=== PATIENT | female | born 1975 | race Caucasian/White ===

== ENCOUNTER 2017-08-09 16:56 | Emergency (ER) | payer MEDICAID ==
[~2017-08-09] VITALS: Ht 160 cm; Wt 99.8 kg
[2017-08-09] MEDS ORDERED: FLOVENT 11110 MCG/PU IH (17:03)
--- NOTE | 2017-08-09 17:13 | Emergency Room Report ---
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 N Clinical Suspician of Infection? N Mental Status: 1 - Regular (Normal Baseline) Sepsis Risk:Low Sepsis Risk Have you (or family members/close friends) recently traveled outside the [place]? N If Yes, where/when: Have you had exposure to infectious disease within the past month? N TB? Other? Specify: 42 years old white female with history of asthma she is a smoker, has been experiencing nonproductive cough for 1 month until yesterday when she started having chest tightness. She denies having fever chills nausea vomiting or palpitation. Source patient, RN notes reviewed Exam Limitations no limitations ALLERGIES Coded Allergies: No Known Allergies (08/09/17) Home Medications Reported Medications FLUTICASONE PROP (Flovent 110) 1 PUFF IH BID #12 History Medical History General CAD? No Angina: No NV: No Hypertension? No Hyperlipidemia? No CHF? No DVT? No PE? No COPD? No Asthma? No Anemia? No GERD? No Gastric ulcers? No Hernia? 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 Respiratory see HPI, cough Cardiovascular no symptoms reported Gastrointestinal no symptoms reported Genitourinary no symptoms reported. Musculoskeletal no symptoms reported Skin no symptoms reported Psychiatric/Neurological no symptoms reported Physical Exam Vital Signs Vital Signs Date Time Temp Pulse Resp B/P Pulse O2 O2 Flow FiO2 Ox Delivery Rate 08/09 1914 108 18 120/95 96 08/09 1844 97 14 130/87 96 08/09 1658 97.8 86 18 135/84 98 - WBC >12,000 or <4,000 or 10% bands? 2 or more SIRS Criteria Met? B/P:135/84 MAP:101 Creatinine >2.0? UA output<0.5ml/kg/hr for 2 hrs? Platelet count >100,000? Lactate >2.0mmol/1? INR >1.2 or PTT > than 60 sec? Evidence of Organ Dysfunction? Provider documented clinical suspician of infection? N Sepsis Criteria Count: 0N Sepsis Risk: Low Sepsis Risk General Appearance normal appearance, WD/WN Eye Exam - bilateral eye normal exam, bilateral eye PERRL, bilateral eye EOMI Ear, Nose, Throat hearing grossly normal, normal ENT inspection Neck normal inspection, non-tender, supple, full range of motion Respiratory Status Yes: trachea midline, chest symmetrical, non tender chest. No: respiratory distress. Lung Sounds bilateral: normal breath sounds, lungs clear. Cardiovascular normal exam, regular rate/rhythm, no peripheral edema, no gallop, no JVD, no murmur, no rub, normal peripheral pulses Peripheral Pulses Pulses normal Yes Gastrointestinal normal bowel sounds, normal exam, non tender, soft, no organomegaly Back normal inspection, no CVA tenderness, no vertebral tenderness Extremities non-tender, normal range of motion, normal inspection Neurologic alert, acid pumper II-XII nml as tested, normal exam, oriented x 3 Reflexes Reflexes normal Yes Mental status normal mood/affect Skin intact, normal color, warm/dry Lymphatic no adenopathy Medical Decision Making LABS/Meds/Orders Pt receiving controlled substance in ED? No Results/Orders Laboratory Tests 08/09/17 1745: Sodium 140, Potassium 4.2, Chloride 105, Carbon Dioxide 29, BUN 11, Creatinine 0.7, Estimated Creat Clear 163, Estimated GFR (MDRD) 91, Glucose 93, Calcium 9.3 , Total Bilirubin 0.3, AST 13 L, ALT 16, Alkaline Phosphatase 79, Creatine Kinase 170, CK-MB (CK-2) Rel Index 1.2, CK and CKMB Interp 2.0, Troponin I 0.02, B-Natriuretic Peptide 12, Total Protein 6.9, Albumin 3.8, Globulin 3.1, Albumin/ Globulin Ratio 1.2, D-Dimer < 100, WBC 8.2, RBC 4.58, Hgb 14.1, Hct 43.5, MCV 94.9, RDW 13.3, Plt Count 304, MPV 7.4, Gran % 56.1, Gran # 4.6, Lymphocytes % 35.0, Monocytes % 5.0, Eosinophils % 3.3, Basophils % 0.5, Lymphocytes # 2.9, Monocytes # 0.4, Eosinophils # 0.3, Basophils # 0.0, PUBS MCHC 32.4, MCH 30.8 Current Medication Orders Sig/Melodie Start time Last Medication Dose Route Stop Time Status Admin Levofloxacin 500 MG ONCE ONE 08/09 1915 DC 08/09 PO 08/09 1916 1914 Levofloxacin 0 .STK-MED ONE 08/09 191 DC .ROUTE Albuterol/Ipratropium 0 .STK-MED ONE 08/09 1801 DC INH Albuterol/Ipratropium 3 ML ONCE ONE 08/09 1800 DC INH 08/09 1801 Levofloxacin/Dextrose 150 ML ONCE ONE 08/09 1800 CANr IV 08/09 1929 Famotidine 0 .STK-MED ONE 08/09 1731 DC IV Aspirin 0 .STK-MED ONE 08/09 1730 DC .ROUTE Methylprednisolone 0 .STK-MED ONE 08/09 1730 DC Sodium Succinate .ROUTE Albuterol/Ipratropium 0 .STK-MED ONE 08/09 1720 DC INH Albuterol/Ipratropium 3 ML ONCE ONE 08/09 1715 DC INH 08/09 1716 Aspirin 325 MG ONCE ONE 08/09 1715 DC 08/09 PO 08/09 1716 1745 Famotidine 20 MG ONCE ONE 08/09 1715 DC 08/09 IV 08/09 1716 1743 Methylprednisolone 125 MG ONCE ONE 08/09 1715 DC 08/09 Sodium Succinate IV 08/09 1716 1744 Sodium Chloride 8 ML ONCE ONE 08/09 1715 DC 08/09 IV 08/09 1716 1746 Orders Procedure Date/time Status RT REQUEST DUONEB 08/09 1757 Active CULTURE, BLOOD 08/09 1757 Active LACTIC ACID 08/09 175 Active ELECTROCARDIOGRAM REQUEST 08/09 1715 Active RT REQUEST DUONEB 08/09 1714 Active D-DIMER 08/09 171 Complete CBC WITH AUTO DIFF 08/09 1714 Complete CARDIAC ENZYMES 08/09 1714 Complete CHEM 12 PROFILE 08/09 171 Complete BRAIN NATRIURETIC PEPTIDE 08/09 1714 Complete CHEST(2 VIEWS-NOT PORTABLE) 08/09 1705 Active 12 LEAD EKG-TAMY (INITIAL) 08/08 UNK Active CM/EKG CM/EKG EKG rate, NSR, rhythm, no evid. of ischemic chgs, no ectopy, normal QRS, normal FL, normal EKG Comments Normal sinus rhythm 81 per minute. Voltage baseline artifact no acute findings XRAY/CT/US XRAY/CT/US XRAY chest XR interpretation by reviewed by me Comment RLL INFILTRATES Departure Departure Time of Disposition 1911 Disposition DC Home or Self Care(routine) Clinical Impression Primary Impression: Bronchopneumonia Secondary Impressions: Reactive airway disease, Tobacco use Condition STABLE Referrals ISAIAH YARBROUGH,NADIA (Family) Additional Instructions tHE PATIENT FELT 90% BETTER AFTER STEROIDS AND NEB TREATMENT, SHE RULED OUT FOR AN NV AND Pe, SHE WANTED OFF WORK EXCUSED AND DECLINED ADMISSION, SHE UNDERSTANDS THAT SHE NEEDS TO STOP SMOKING. 1- OFF WORK X 2 DAYS. 2- STOP SMOKING. 3- LEVAQUIN 500 MG 4- TESSALON PEALRS. 6- COMBIVENT INHALER. 7-SEE Nadia Merchant FOR FINAL X RAY REPORT, SMOKING CESSATION AND RECHECK. 8- RETURN NEEDED. Discharge Counseling Counseled pt/family regarding diagnosis, test results, medications/RX, home care, follow up needs Prescriptions Current Visit Scripts Levofloxacin (Levaquin 500MG) 500 MG PO DAILY #10 TAB Benzonatate (Tessalon Perle) 100 MG PO Q4HP PRN COUGH #30 SGL ALBUTEROL-IPRATROPIUM (Combivent Inhaler) 1 PUFFS IN Q12 #1 INH Ref 1 Methylprednisolone (Medrol Dose Doug) 4 MG PO UD #1 DOUG TAKE DIRECTED ON PACKAGING ED Critical Care Critical Care No If Critical Care minutes are documented, the time involved in the performance of seperately reportable procedures was not counted toward critical care time documented. I directly delivered medical care to this critically ill and/or injured patient. Timely evaluation and treatment was necessary to address the significant organ system(s) dysfunction present in this patient. at 1917
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
--- OUTSIDE RECORDS SUMMARY | 2017-08-09 17:16 | External Medical Summary Rpt | CCD ---
Author Author , JC GREENE Address Unknown Phone [email or web address] Care Team Providers Care Sports Team Marketing Intern Name Role Phone [facility], Unavailable Unavailable [facility] RINA MICHELLE, RINA Unavailable Unavailable [facility] DE[facility] [...] HEALTH T [facility] UNCOMPLICAT IN ED [id number] PAIN IN 06-22-2017 [facility] A33424 PAIN IN 06-22-2017 [facility] LEFT [facility] [...] & LUMP CONSULTING LOWER LIMB SRV BILATERAL T13596 UNSPECIFIED 01-28-2017 [facility] UNCOMPLICAT HOLDINGS ED R609 EDEMA 01-28-2017 [facility] UNSPECIFIED [facility] F70639 ENCOUNTER 01-28-2017 [facility] SCREENING HOLD[facility] FOR LIPOID DISORDERS [...] 17 17 37 FA A 0 29 [place] [address] G UG IN [place] LE R VE 00 09 10 18 20 00 SO Ac NT 17 -2 -2 .0 00 PE ti OL 30 8- 7- 00 00 RS ve IN 68 20 20 57 22 17 17 37 FA HF 0 28 [place] A LY 90 DR MC UG G IN [place] LE R NA 68 09 10 60 30 00 SO Ac IA 46 -2 -2 .0 00 PE ti OX 20 8- 7- 00 00 RS ve EN 19 20 20 57 00 17 17 37 FA 50 5 27 [place] [address] TA UG BL ET TI 57 09 10 15 15 00 SO Ac ZA 66 -2 -2 .0 00 PE ti NI 40 8- 7- 00 00 RS ve DI 50 20 20 57 NE 31 17 17 37 FA 8 26 TN HC LY L 4 DR MG UG TA BL ET VE 00 09 10 18 20 00 SO Ac NT 17 -1 -0 .0 00 PE ti OL 30 3- 6- 00 00 RS ve IN 68 20 20 55 22 17 17 70 FA HF 0 64 [place] A LY 90 DR MC UG G IN [place] LE R GA 69 08 09 90 30 00 SO Ac BA 09 -1 -0 .0 00 PE ti PE 70 0- 8- 00 00 RS ve NT 81 20 20 55 IN 21 17 17 70 FA 2 49 [place] [address] UG TA BL ET VE 00 07 08 18 20 00 SO Ac NT 17 -1 -1 .0 00 PE ti OL 30 3- 1- 00 00 RS ve IN 68 20 20 55 22 17 17 70 FA HF 0 64 [place] A LY 90 DR MC UG G IN [place] LE R GA 69 06 07 90 30 00 SO Ac BA 09 -2 -1 .0 00 PE ti PE 70 0- 4- 00 00 RS ve NT 81 20 20 55 IN 21 17 17 70 FA 2 49 [place] [address] UG TA BL ET ME 53 06 07 30 30 00 SO Ac TF 74 -2 -1 .0 00 PE ti OR 60 0- 4- 00 00 RS ve TN 17 20 20 56 N 80 17 17 33 FA HC 5 40 TN L LY ER DR 50 UG 0 MG TA BL ET NI 00 05 06 28 28 00 SO Ac CO 53 -0 -0 .0 00 PE ti TI 65 4- 2- 00 00 RS ve NE 89 20 20 56 68 17 17 29 FA 21 8 77 TN LY MG /2 DR 4H UG R PA TC H ME 53 05 06 30 30 00 SO Ac TF 74 -0 -0 .0 00 PE ti OR 60 9- 2- 00 00 RS ve TN 17 20 20 56 N 80 17 17 33 FA HC 5 40 [place] L LY ER DR 50 UG 0 MG TA BL ET GA 68 05 06 90 30 00 SO Ac BA 46 -0 -0 .0 00 PE ti PE 20 9- 2- 00 00 RS ve NT 12 20 20 55 IN 60 17 17 70 FA 5 49 [place] [address] UG TA BL ET LO 45 05 06 30 30 00 SO Ac RA 80 -0 -0 .0 00 PE ti TA 20 9- 2- 00 00 RS ve DI 65 20 20 55 NE 08 17 17 70 FA 7 50 [place] [address] UG TA BL ET VE 00 04 05 18 20 00 SO Ac NT 17 -1 -1 .0 00 PE ti OL 30 9- 2- 00 00 RS ve IN 68 20 20 55 22 17 17 70 FA HF 0 64 [place] A LY 90 DR MC UG G IN [place] LE R FL 00 04 05 12 30 00 SO Ac OV 17 -1 -1 .0 00 PE ti EN 30 9- 2- 00 00 RS ve T 72 20 20 55 HF 02 17 17 70 FA A 0 63 TN [address] G UG IN [place] LE R GA 68 04 05 90 30 00 SO Ac BA 46 -0 -0 .0 00 PE ti PE 20 6- 5- 00 00 RS ve NT 12 20 20 55 IN 60 17 17 70 FA 5 49 [place] [address] UG TA BL ET GA 68 02 03 90 30 00 SO Ac BA 46 -2 -2 .0 00 PE ti PE 20 8- 4- 00 00 RS ve NT 12 20 20 55 IN 60 17 17 70 FA 5 49 [place] [address] UG TA BL ET LO 45 02 03 30 30 00 SO Ac RA 80 -2 -1 .0 00 PE ti TA 20 2- 7- 00 00 RS ve DI 65 20 20 55 NE 08 17 17 70 FA 7 50 [place] [address] UG TA BL [...] -V 34 U 7 LA RG E IA 59 01 02 15 7 00 RI [...] End Date Code Location Performer Type Date [facility] [address] T
--- OUTSIDE RECORDS SUMMARY | 2017-08-09 17:17 | External Medical Summary Rpt | CCD ---
Author Author , JC GREENE Address Unknown Phone [email or web address] Care Team Providers Care Cooper Apprentice Name Role Phone [facility], Unavailable Unavailable [facility] RINA MICHELLE, RINA Unavailable Unavailable [facility] DEPT [...] 2016 Problems Code Diagnosis DOS Provider Status J4520 MILD 06-22-2017 [facility]ITT[facility] T [facility] UNCOMPLICAT IN ED L78999 PAIN IN 06-22-2017 [facility] IN N07884 PAIN IN 06-22-2017 [facility] IN R072 PRECORDIAL 06-22-2017 [facility] IN Z1231 ENCOUNTER 06-22-2017 [facility] SCREENING HEALTH MAMMO MALIG [facility]UT[facility] NEOPLASM IN BREAST I517 CARDIOMEGAL 02-17-2017 [facility] IN G4710 HYPERSOMNIA 02-11-2017 NOEMI SÁNCHEZ UNSPECIFIED CONSULTING SRV I10 ESSENTIAL 02-10-2017 NOEMI SÁNCHEZ PRIMARY HYPERTENSIO CONSULTING N SRV R0602 SHORTNESS 02-10-2017 NOEMI SÁNCHEZ OF BREATH MD CONSULTING SRV R2243 LOC 02-10-2017 NOEMI SÁNCHEZ SWELLING MASS & LUMP CONSULTING LOWER LIMB SRV BILATERAL P44467 UNSPECIFIED 01-28-2017 [facility] UNCOMPLICAT HOLDINGS ED R609 EDEMA 01-28-2017 [facility] UNSPECIFIED [facility] G66054 ENCOUNTER 01-28-2017 [facility] SCREENING [...] PUBLIC HLTH AL TRAUMA PRS [facility] Medications Na ND Rx Da Fi Fi Am Da Di Ph RX Ph St me C No te ll ll ou ys ag ar # ys at rm s nt no ma ic us Or Da si cy ia de te s n re d TI 57 09 10 15 15 00 SO Ac ZA 66 -2 -2 .0 00 PE ti NI 40 8- 7- 00 00 RS ve DI 50 20 20 57 NE 31 17 17 37 FA 8 26 CO HC LY L 4 DR MG UG TA BL ET NA 68 09 10 60 30 00 SO Ac KS 46 -2 -2 .0 00 PE ti OX 20 8- 7- 00 00 RS ve EN 19 20 20 57 00 17 17 37 FA 50 5 27 CO [address] TA UG BL ET VE 00 09 10 18 20 00 SO Ac NT 17 -2 -2 .0 00 PE ti OL 30 8- 7- 00 00 RS ve IN 68 20 20 57 22 17 17 37 FA HF 0 28 CO A LY 90 DR MC UG G IN [place] LE R FL 00 09 10 12 30 00 SO Ac OV 17 -2 -2 .0 00 PE ti EN 30 8- 7- 00 00 RS ve T 71 20 20 57 HF 92 17 17 37 FA A 0 29 CO [address] G UG IN [place] LE R VE 00 09 10 18 20 00 SO Ac NT 17 -1 -0 .0 00 PE ti OL 30 3- 6- 00 00 RS ve IN 68 20 20 55 22 17 17 70 FA HF 0 64 CO A LY 90 DR MC UG G IN [place] LE R GA 69 08 09 90 30 00 SO Ac BA 09 -1 -0 .0 00 PE ti PE 70 0- 8- 00 00 RS ve NT 81 20 20 55 IN 21 17 17 70 FA 2 49 CO [address] UG TA BL ET VE 00 07 08 18 20 00 SO Ac NT 17 -1 -1 .0 00 PE ti OL 30 3- 1- 00 00 RS ve IN 68 20 20 55 22 17 17 70 FA HF 0 64 CO A LY 90 DR MC UG G IN [place] LE R GA 69 06 07 90 30 00 SO Ac BA 09 -2 -1 .0 00 PE ti PE 70 0- 4- 00 00 RS ve NT 81 20 20 55 IN 21 17 17 70 FA 2 49 CO [address] UG TA BL ET ME 53 06 07 30 30 00 SO Ac TF 74 -2 -1 .0 00 PE ti OR 60 0- 4- 00 00 RS ve CO 17 20 20 56 N 80 17 17 33 FA HC 5 40 CO L LY ER DR 50 UG 0 MG TA BL ET NI 00 05 06 28 28 00 SO Ac CO 53 -0 -0 .0 00 PE ti TI 65 4- 2- 00 00 RS ve NE 89 20 20 56 68 17 17 29 FA 21 8 77 CO LY MG /2 DR 4H UG R PA TC H ME 53 05 06 30 30 00 SO Ac TF 74 -0 -0 .0 00 PE ti OR 60 9- 2- 00 00 RS ve CO 17 20 20 56 N 80 17 17 33 FA HC 5 40 CO L LY ER DR 50 UG 0 MG TA BL ET GA 68 05 06 90 30 00 SO Ac BA 46 -0 -0 .0 00 PE ti PE 20 9- 2- 00 00 RS ve NT 12 20 20 55 IN 60 17 17 70 FA 5 49 CO [address] UG TA BL ET LO 45 05 06 30 30 00 SO Ac RA 80 -0 -0 .0 00 PE ti TA 20 9- 2- 00 00 RS ve DI 65 20 20 55 NE 08 17 17 70 FA 7 50 CO [address] UG TA BL ET VE 00 04 05 18 20 00 SO Ac NT 17 -1 -1 .0 00 PE ti OL 30 9- 2- 00 00 RS ve IN 68 20 20 55 22 17 17 70 FA HF 0 64 CO A LY 90 DR MC UG G IN [place] LE R FL 00 04 05 12 30 00 SO Ac OV 17 -1 -1 .0 00 PE ti EN 30 9- 2- 00 00 RS ve T 72 20 20 55 HF 02 17 17 70 FA A 0 63 CO [address] G UG IN [place] LE R GA 68 04 05 90 30 00 SO Ac BA 46 -0 -0 .0 00 PE ti PE 20 6- 5- 00 00 RS ve NT 12 20 20 55 IN 60 17 17 70 FA 5 49 CO [address] UG TA BL ET GA 68 02 03 90 30 00 SO Ac BA 46 -2 -2 .0 00 PE ti PE 20 8- 4- 00 00 RS ve NT 12 20 20 55 IN 60 17 17 70 FA 5 49 CO [address] UG TA BL ET LO 45 02 03 30 30 00 SO Ac RA 80 -2 -1 .0 00 PE ti TA 20 2- 7- 00 00 RS ve DI 65 20 20 55 NE 08 17 17 70 FA 7 50 CO [address] UG TA BL [...] -V 34 U 7 LA RG E KS 59 01 02 15 7 00 RI [...] End Date Code Location Performer Type Date [facility] [address] T
--- OUTSIDE RECORDS SUMMARY | 2017-08-09 17:17 | External Medical Summary Rpt | CCD ---
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 Name Role Phone [facility], Unavailable Unavailable [facility] RINA MICHELLE, RINA Unavailable Unavailable [...] HEALTH T ASTHMA SOLUTIONS UNCOMPLICAT IN ED [id number] PAIN IN 06-22-2017 [facility] IN [id number] PAIN IN 06-22-2017 [facility] LEFT [facility] [...] & [facility] CONSULTING LOWER LIMB SRV BILATERAL [id number] UNSPECIFIED 01-28-2017 [facility] ASTHMA [facility] UNCOMPLICAT HOLDINGS ED R609 EDEMA 01-28-2017 [facility] UNSPECIFIED [facility] HOLDINGS [id number] ENCOUNTER 01-28-2017 [facility] FOR [facility] SCREENING [...] 31 17 17 37 FA 8 26 KS HC LY L 4 DR MG UG TA BL ET NA 68 09 10 60 30 00 SO Ac VA 46 -2 -2 .0 00 PE ti OX 20 8- 7- 00 00 RS ve EN 19 20 20 57 00 17 17 37 FA 50 5 27 KS [address] TA UG BL ET VE 00 09 10 18 20 00 SO Ac NT 17 -2 -2 .0 00 PE ti OL 30 8- 7- 00 00 RS ve IN 68 20 20 57 22 17 17 37 FA HF 0 28 KS A LY 90 DR MC UG G IN [place] LE R FL 00 09 10 12 30 00 SO Ac OV 17 -2 -2 .0 00 PE ti EN 30 8- 7- 00 00 RS ve T 71 20 20 57 HF 92 17 17 37 FA A 0 29 KS [address] G UG IN [place] LE R VE 00 09 10 18 20 00 SO Ac NT 17 -1 -0 .0 00 PE ti OL 30 3- 6- 00 00 RS ve IN 68 20 20 55 22 17 17 70 FA HF 0 64 KS A LY 90 DR MC UG G IN [place] LE R GA 69 08 09 90 30 00 SO Ac BA 09 -1 -0 .0 00 PE ti PE 70 0- 8- 00 00 RS ve NT 81 20 20 55 IN 21 17 17 70 FA 2 49 KS [address] UG TA BL ET VE 00 07 08 18 20 00 SO Ac NT 17 -1 -1 .0 00 PE ti OL 30 3- 1- 00 00 RS ve IN 68 20 20 55 22 17 17 70 FA HF 0 64 KS A LY 90 DR MC UG G IN [place] LE R GA 69 06 07 90 30 00 SO Ac BA 09 -2 -1 .0 00 PE ti PE 70 0- 4- 00 00 RS ve NT 81 20 20 55 IN 21 17 17 70 FA 2 49 KS [address] UG TA BL ET ME 53 06 07 30 30 00 SO Ac TF 74 -2 -1 .0 00 PE ti OR 60 0- 4- 00 00 RS ve KS 17 20 20 56 N 80 17 17 33 FA HC 5 40 KS L LY ER DR 50 UG 0 MG TA BL ET NI 00 05 06 28 28 00 SO Ac CO 53 -0 -0 .0 00 PE ti TI 65 4- 2- 00 00 RS ve NE 89 20 20 56 68 17 17 29 FA 21 8 77 KS LY MG /2 DR 4H UG R PA TC H ME 53 05 06 30 30 00 SO Ac TF 74 -0 -0 .0 00 PE ti OR 60 9- 2- 00 00 RS ve KS 17 20 20 56 N 80 17 17 33 FA HC 5 40 KS L LY ER DR 50 UG 0 MG TA BL ET GA 68 05 06 90 30 00 SO Ac BA 46 -0 -0 .0 00 PE ti PE 20 9- 2- 00 00 RS ve NT 12 20 20 55 IN 60 17 17 70 FA 5 49 KS [address] UG TA BL ET LO 45 05 06 30 30 00 SO Ac RA 80 -0 -0 .0 00 PE ti TA 20 9- 2- 00 00 RS ve DI 65 20 20 55 NE 08 17 17 70 FA 7 50 KS [address] UG TA BL ET VE 00 04 05 18 20 00 SO Ac NT 17 -1 -1 .0 00 PE ti OL 30 9- 2- 00 00 RS ve IN 68 20 20 55 22 17 17 70 FA HF 0 64 KS A LY 90 DR MC UG G IN [place] LE R FL 00 04 05 12 30 00 SO Ac OV 17 -1 -1 .0 00 PE ti EN 30 9- 2- 00 00 RS ve T 72 20 20 55 HF 02 17 17 70 FA A 0 63 KS [address] G UG IN [place] LE R GA 68 04 05 90 30 00 SO Ac BA 46 -0 -0 .0 00 PE ti PE 20 6- 5- 00 00 RS ve NT 12 20 20 55 IN 60 17 17 70 FA 5 49 KS [address] UG TA BL ET GA 68 02 03 90 30 00 SO Ac BA 46 -2 -2 .0 00 PE ti PE 20 8- 4- 00 00 RS ve NT 12 20 20 55 IN 60 17 17 70 FA 5 49 KS [address] UG TA BL ET LO 45 02 03 30 30 00 SO Ac RA 80 -2 -1 .0 00 PE ti TA 20 2- 7- 00 00 RS ve DI 65 20 20 55 NE 08 17 17 70 FA 7 50 KS [address] UG TA BL [...] -V 34 U 7 LA RG E VA 59 01 02 15 7 00 RI [...] End Date Code Location Performer Type Date [facility] [address] T
--- OUTSIDE RECORDS SUMMARY | 2017-08-09 17:18 | External Medical Summary Rpt ---
Author Author JC Ramirez, [employer] Address Unknown Phone Unavailable
--- OUTSIDE RECORDS SUMMARY | 2017-08-09 17:18 | External Medical Summary Rpt | CCD ---
Author Author , JC GREENE Address Unknown Phone [email or web address] Immunization Name Date Rout CVX Reac Dose Comm Prov Is Faci e tion ent ider Refu lity Give sed n Hep 06- 43 999 Hist H191 No H191 B, 7-20 oric adul 02 al t Info rmat ion - Sour ce Unsp ecif ied Hep 05-1 43 999 Hist H191 No H191 B, 3-20 oric adul 02 al t Info rmat ion - Sour ce Unsp ecif ied
--- OUTSIDE RECORDS SUMMARY | 2017-08-09 17:18 | External Medical Summary Rpt | CCD ---
Author Author , JC GREENE Address Unknown Phone [email or web address] Immunization Name Date Rout CVX Reac Dose [...]
[2017-08-09 17:58] LABS: HEMOGLOBIN 14.1 g/dL (12.2-16.2); LYMPH # 2.9 K/mm3 (0.7-4.5)
[2017-08-09] MEDS ORDERED: TESSALON PERLE100 M1 PO (19:16)
[2017-08-09] MEDS ORDERED: LEVAQUIN500 MG PO (19:16)
[2017-08-09] MEDS ORDERED: ALBUTEROL-1 PUFF/14. IN (19:17)
[2017-08-09] MEDS ORDERED: MEDROL 4MG. DOSE4 MG PO (19:17)
[2017-08-09 19:32] VITALS: BP 120/95
--- NOTE | 2017-08-09 23:24 | RADIOLOGY REPORT PS360 ---
CHEST(2 VIEWS-NOT PORTABLE) HISTORY: Cough and congestion R/O PNEUMONIA ORDERING PHYSICIAN: Umu Shrestha MD PATIENT AGE: 42 years COMPARISON: None available FINDINGS: The heart size is unremarkable. There is increased soft tissue density adjacent to the right heart border which may related to pericardial fat pad or possibly pericardial cyst. CT may be of further value. There are no previous exam for comparison. The remaining lungs are clear. No acute bony anomalies. IMPRESSION: 1. Right pericardial soft tissue density which may represent pericardial fat pad or perhaps pericardial cyst. CT may differentiate. 2. Otherwise negative
== END 2017-08-09 19:40 | disposition home or self-care (01) ==
LOC: ER 16:56
PROVIDERS: Emergency Medicine
DX: J18.0 Bronchopneumonia, unspecified organism (principal); F17.210 Nicotine dependence, cigarettes, uncomplicated; J45.909 Unspecified asthma, uncomplicated